=== PATIENT | female | born 1945 | race Caucasian/White ===

== ENCOUNTER 2017-02-12 05:35 | Day surgery (SDC) | payer OTHER ==
[~2017-02-12] VITALS: Ht 170.2 cm; Wt 63.5 kg
[~2017-02-12 05:35] MED LIST: ASPIRIN325 MG PO; CENTRUM SILVER1 EAC4 PO; COLACE100 MG PO; COQ-10100 MG PO; FISH OIL300 MG PO; FOSAMAX10 MG PO; GLUCOSAMINE-CH1 EA15 PO; HYDROCODON-ACE1 EAC7 PO; LIPITOR10 MG PO; LO-DOSE ASPIRIN81 M2 PO; SYNTHROID25 MCG PO; VIACTIV SOFT C1 EACH PO; ZETIA10 MG PO; ZOFRAN4 MG PO
[2017-02-12 06:15] VITALS: BP 143/65
[2017-02-12 09:05] VITALS: BP 130/63
[2017-02-12 09:40] VITALS: BP 127/68
== END 2017-02-12 09:45 | disposition home or self-care (01) ==
LOC: SDC 05:35
DX: H35.341 Macular cyst, hole, or pseudohole, right eye (principal); E03.9 Hypothyroidism, unspecified; Z79.82 Long term (current) use of aspirin; Z88.2 Allergy status to sulfonamides; Z88.1 Allergy status to other antibiotic agents
CPT/HCPCS: J0690; J3300